=== PATIENT | female | born 1945 | race Caucasian/White ===

== ENCOUNTER 2017-03-21 07:11 | Inpatient (IN) | payer MEDICARE, OTHER ==
[~2017-03-21] VITALS: Ht 162.6 cm; Wt 68.9 kg
[2017-03-21] MEDS ORDERED: QUET50TA PO (07:43)
[2017-03-21] MEDS ORDERED: ASPI81TA31 PO (07:43)
[2017-03-21] MEDS ORDERED: MEMA10TA PO (07:43)
[2017-03-21] MEDS ORDERED: TRAZ-144 PO ×2 (07:43)
[2017-03-21] MEDS ORDERED: SERT50TA PO (07:43)
[2017-03-21 07:59] LABS: BASOPHILS % (AUTO) 0.6 % (0.0-2.0); EOSINOPHILS # (AUTO) 0.1 K/uL (0.0-0.7); EOSINOPHILS % (AUTO) 1.6 % (0.0-7.0); HEMATOCRIT 37.2 % (31.2-41.9); HEMOGLOBIN 12.6 g/dL (10.9-14.3); LYMPHOCYTES # (AUTO) 1.1 K/uL (20.0-40.0); LYMPHOCYTES % (AUTO) 26.4 % (20.5-51.5); MEAN CORPUSCULAR HEMOGLOBIN 31.3 uug (24.7-32.8); MEAN CORPUSCULAR HGB CONC 34 g/dL (32.3-35.6); MEAN CORPUSCULAR VOLUME 92.3 fL (75.5-95.3); MONOCYTES # (AUTO) 0.3 K/uL (2.0-10.0); MONOCYTES % (AUTO) 6.9 % (0.0-11.0); NEUTROPHILS # (AUTO) 2.7 K/uL (1.8-8.9); NEUTROPHILS % (AUTO) 64.5 % (38.5-71.5); PLATELET COUNT (AUTO) 245 K/uL (179-408); RED BLOOD CELL COUNT(AUTO) 4.03 MIL/uL (3.63-4.92); WHITE BLOOD COUNT (AUTO) 4.2 K/uL (3.8-11.8)
[2017-03-21 08:28] LABS: *BILIRUBIN,URIN NEGATIVE (NEGATIVE); *BLOOD, URINE NEGATIVE (NEGATIVE); *CLARITY,URINE CLEAR (CLEAR); *COLOR,URINE YELLOW (YELLOW); *KETONES,URINE NEGATIVE (NEGATIVE); *PROTEIN,URINE NEGATIVE (NEGATIVE); *UROBILINOGEN,URINE 0.2 E.U./dl (NORMAL); LEUKOCYTE ESTERASE ,URINE NEGATIVE (NEGATIVE); NITRITE, URINE NEGATIVE (NEGATIVE); PH,URINE 5.5 (5.0-8.0); UGLUCOSE TRACE (NEGATIVE)
[2017-03-21 08:31] LABS: BACTERIA,URINE FEW /HPF (NONE SEEN); RBC,URINE 0-3 /HPF (0-3); SQUAMOUS EPITHELIAL CELL,UR FEW /HPF (NONE SEEN); WBC,URINE 0-3 /HPF (0-3)
[2017-03-21 08:31] LABS: ETHANOL < 3 MG/DL (0-0)
[2017-03-21 08:34] LABS: *AMPHETAMINE, URINE NEGATIVE (NEGATIVE); *BARBITURATE, URINE NEGATIVE (NEGATIVE); *CANNABINOID, URINE NEGATIVE (NEGATIVE); *COCCAINE, URINE NEGATIVE (NEGATIVE); *OPIATE, URINE NEGATIVE (NEGATIVE); *PHENCYCLIDINE SCREEN,URINE NEGATIVE (NEGATIVE)
[2017-03-21 08:47] LABS: CARBON DIOXIDE 28 mmol/L (21-32); CHLORIDE 104 mmol/L (98-107); CREATININE 1.1 mg/dL (0.6-1.3); GLUCOSE 150 mg/dL (74-106); POTASSIUM 3.8 mmol/L (3.5-5.1); UREA NITROGEN, BLOOD 18 mg/dL (7-18)
[2017-03-21 08:52] LABS: ALANINE AMINOTRANSFERASE 24 U/L (14-59); ALKALINE PHOSPHATASE 72 U/L (50-136); ASPARTATE AMINOTRANSFERASE 24 U/L (15-37); BILIRUBIN,DIRECT 0.1 mg/dL (0.0-0.2); BILIRUBIN,TOTAL 0.3 mg/dL (0.2-1.0); TOTAL PROTEIN, SERUM 7.6 g/dL (6.4-8.2)
[2017-03-21 08:57] LABS: ACETAMINOPHEN < 2.0 ug/mL (10-30)
--- NOTE | 2017-03-21 09:01 | NUR ---
PT MEDICALLY CLEARED BY
--- NOTE | 2017-03-21 09:03 | NUR ---
SPOKE TO [facility] LES HARTMAN FOR PSYCH EVAL, ETA 1 HR PT RESTING COMFORABLY, FAMILY AT BEDSIDE
--- NOTE | 2017-03-21 10:26 | NUR ---
LES HERE FOR PSYCH EVALUATION.
--- NOTE | 2017-03-21 10:30 | NUR ---
LES HARTMAN FROM [facility] AT PT BEDSIDE
--- NOTE | 2017-03-21 11:00 | NUR ---
WAITING FOR BED AVAILABILITY PER COMMUTATOR PRESSER
--- NOTE | 2017-03-21 12:28 | NUR ---
ATTEMPTED TO GIVE REPORT TO MENTAL HEALTH UNIT, NURSE UNAVAIALABLE
--- NOTE | 2017-03-21 12:46 | NUR ---
ATTEMPTED TO CALL TO GIVE REPORT AGAIN, NURSE NOT AVAILABLE
[2017-03-21 13:10] VITALS: BP 122/66
[2017-03-21] MEDS ORDERED: MAGNESIUM HYDROXIDE 30 ML LIQUID UDC PO PRN (13:30)
[2017-03-21] MEDS ORDERED: ACETAMINOPHEN 325 MG TABLET PO PRN (13:30)
[2017-03-21] MEDS ORDERED: TEMAZEPAM 7.5 MG CAPSULE PO PRN (13:30)
[2017-03-21] MEDS ORDERED: MAG HYDROX/AL HYDROX/SIMETH 30 ML LIQUID UDC PO PRN (13:30)
[2017-03-21 16:50] VITALS: BP 117/63
[2017-03-21] MEDS ORDERED: TRAZODONE 50 MG TABLET PO SCH (18:00)
[2017-03-21] MEDS: TRAZODONE 50 MG TABLET PO SCH (18:32)
[2017-03-21] MEDS: QUETIAPINE FUMARATE 25 MG TABLET PO SCH (18:32)
[2017-03-21 20:00] VITALS: BP 128/65
--- NOTE | 2017-03-21 22:00 | NUR ---
received to care, wandering about unit, pleasant upon approach, but confused and delusional. stated that she was looking for her small children. reality orientation was provided, but she remains as confused as before. PRN restoril was given at 2101 for insomnia, and, by 2139, was in her bed, asleep. as of 2199, she remains asleep. no distress noted. will continue to monitor closely.
[2017-03-22 07:30] VITALS: BP 149/68
--- NOTE | 2017-03-22 11:07 | NUR ---
Firearms Report: whiting can worker completed and submitted [facility] [employer]arms Report on 03/22/17.
--- NOTE | 2017-03-22 11:59 | NUR ---
Initial discharge Instructions: Pt currently lives at home with her daughter and brother who care for her [[id number] [place] [address]; [phone]]. Per dtr, she thinks a SNF would be appropriate for the pt currently due to safety reasons. SW will speak with pt, family, and MD regarding appropriate discharge plans. SW will form a safe and proper discharge.
[2017-03-22] MEDS: SERTRALINE HCL 50 MG TABLET PO SCH (12:00)
[2017-03-22] MEDS: ASPIRIN 81 MG TAB.CHEW PO SCH (13:16)
[2017-03-22 16:58] VITALS: BP 115/68
[2017-03-22] MEDS: QUETIAPINE FUMARATE 25 MG TABLET PO SCH (17:02)
[2017-03-22] MEDS: TRAZODONE 50 MG TABLET PO SCH (17:05)
[2017-03-22] MEDS: METFORMIN HCL 500 MG TABLET PO SCH (17:08)
[2017-03-22] MEDS ORDERED: METFORMIN HCL 500 MG TABLET PO SCH (18:00)
[2017-03-22 20:00] VITALS: BP 119/55
[2017-03-22] MEDS: CLONAZEPAM 0.5 MG TABLET PO PRN (21:42)
--- NOTE | 2017-03-22 22:00 | NUR ---
received to care, ambulating about the unit, isolative, but pleasant upon approach. remains confused and disorganized. no interactions noted, with peers. PRN griffin was given at 2141, for anxiety. as of 2199, she remains awake, but calm, currently sitting on her bed. no distress noted. will continue to monitor closely.
[2017-03-23 08:00] VITALS: BP 126/64
[2017-03-23] MEDS: SERTRALINE HCL 50 MG TABLET PO SCH (08:49)
[2017-03-23] MEDS: METFORMIN HCL 500 MG TABLET PO SCH ×2 (08:49→18:12)
[2017-03-23] MEDS: ASPIRIN 81 MG TAB.CHEW PO SCH (08:49)
[2017-03-23] MEDS: ECONAZOLE CREAM 30 GM TUBE TOP SCH (11:53)
[2017-03-23 16:05] VITALS: BP 124/59
[2017-03-23] MEDS: QUETIAPINE FUMARATE 25 MG TABLET PO SCH (18:12)
[2017-03-23] MEDS: TRAZODONE 50 MG TABLET PO SCH (18:12)
[2017-03-23 21:31] VITALS: BP 119/64
--- NOTE | 2017-03-23 22:00 | NUR ---
received to care, wandering about unit, confused, but pleasant upon approach. interacts well with peers. compliant with staff direction. as of 2199, she appears to be asleep. no distress noted. will continue to monitor closely.
--- NOTE | 2017-03-24 06:00 | NUR ---
slept 7.5 hours. continues to sleep. no distress noted.
[2017-03-24 07:30] VITALS: BP 114/63
[2017-03-24] MEDS: SERTRALINE HCL 50 MG TABLET PO SCH (08:14)
[2017-03-24] MEDS: METFORMIN HCL 500 MG TABLET PO SCH ×2 (08:14→17:26)
[2017-03-24] MEDS: ASPIRIN 81 MG TAB.CHEW PO SCH (08:14)
[2017-03-24] MEDS: ECONAZOLE CREAM 30 GM TUBE TOP SCH (08:24)
[2017-03-24] MEDS ORDERED: DEXTROSE 50% 50 ML DISP.SYRIN IV PRN (12:30)
[2017-03-24] MEDS: BLOOD SUGAR DIAGNOSTIC 1 EACH STRIP VI SCH ×3 (12:40→20:37)
[2017-03-24] MEDS: INSULIN REGULAR, HUMAN 300 UNIT/3 ML VIAL SQ PRN ×3 (13:11→20:41)
[2017-03-24 15:21] VITALS: BP 113/50
[2017-03-24] MEDS: QUETIAPINE FUMARATE 25 MG TABLET PO SCH (17:26)
[2017-03-24] MEDS: TRAZODONE 50 MG TABLET PO SCH (17:26)
[2017-03-24 20:00] VITALS: BP 129/69
[2017-03-25] MEDS: BLOOD SUGAR DIAGNOSTIC 1 EACH STRIP VI SCH ×4 (06:42→20:49)
--- NOTE | 2017-03-25 06:46 | NUR ---
GPS: REMAIN CALM AND COOPERATIVE WITH MEDICATION AND CARE. SLEPT 07:30 HRS THROUGH THE NIGHT. ASSISTED WITH SHOWERED THIS AM.BLOOD SUGAR 129 MG/DL. PATIENT PLEASANTLY CONFUSED. CONTINUE PLAN OF CARE.
[2017-03-25 07:30] VITALS: BP 121/61
[2017-03-25] MEDS: METFORMIN HCL 500 MG TABLET PO SCH ×2 (08:19→17:53)
[2017-03-25] MEDS: SERTRALINE HCL 50 MG TABLET PO SCH (08:19)
[2017-03-25] MEDS: ASPIRIN 81 MG TAB.CHEW PO SCH (08:19)
[2017-03-25] MEDS: ECONAZOLE CREAM 30 GM TUBE TOP SCH (08:19)
[2017-03-25 15:00] VITALS: BP 109/60
[2017-03-25] MEDS: INSULIN REGULAR, HUMAN 300 UNIT/3 ML VIAL SQ PRN ×2 (16:16→20:51)
[2017-03-25] MEDS: TRAZODONE 50 MG TABLET PO SCH (17:53)
[2017-03-25] MEDS: QUETIAPINE FUMARATE 25 MG TABLET PO SCH (17:53)
[2017-03-25 19:59] VITALS: BP 132/60
[2017-03-26] MEDS: BLOOD SUGAR DIAGNOSTIC 1 EACH STRIP VI SCH ×4 (06:32→20:46)
[2017-03-26 07:30] VITALS: BP 116/61
[2017-03-26] MEDS: ASPIRIN 81 MG TAB.CHEW PO SCH (08:07)
[2017-03-26] MEDS: METFORMIN HCL 500 MG TABLET PO SCH ×2 (08:07→17:29)
[2017-03-26] MEDS: SERTRALINE HCL 50 MG TABLET PO SCH (08:07)
[2017-03-26] MEDS: ECONAZOLE CREAM 30 GM TUBE TOP SCH (08:07)
[2017-03-26] MEDS: INSULIN REGULAR, HUMAN 300 UNIT/3 ML VIAL SQ PRN (12:02)
[2017-03-26 15:37] VITALS: BP 133/84
[2017-03-26] MEDS: TRAZODONE 50 MG TABLET PO SCH (17:28)
[2017-03-26] MEDS: QUETIAPINE FUMARATE 25 MG TABLET PO SCH (17:29)
[2017-03-26 19:43] VITALS: BP 125/54
[2017-03-26] MEDS: CLONAZEPAM 0.5 MG TABLET PO PRN (20:19)
[2017-03-27] MEDS: BLOOD SUGAR DIAGNOSTIC 1 EACH STRIP VI SCH ×4 (06:34→22:02)
[2017-03-27 07:30] VITALS: BP 120/61
[2017-03-27] MEDS: ASPIRIN 81 MG TAB.CHEW PO SCH (08:02)
[2017-03-27] MEDS: SERTRALINE HCL 50 MG TABLET PO SCH (08:02)
[2017-03-27] MEDS: METFORMIN HCL 500 MG TABLET PO SCH ×2 (08:02→17:15)
[2017-03-27] MEDS: ECONAZOLE CREAM 30 GM TUBE TOP SCH (08:02)
[2017-03-27] MEDS: INSULIN REGULAR, HUMAN 300 UNIT/3 ML VIAL SQ PRN ×2 (11:42→22:07)
[2017-03-27 15:35] VITALS: BP 112/50
[2017-03-27] MEDS: QUETIAPINE FUMARATE 25 MG TABLET PO SCH (17:14)
[2017-03-27] MEDS: TRAZODONE 50 MG TABLET PO SCH (17:15)
--- NOTE | 2017-03-27 17:35 | NUR ---
Gps/Bartacker- Noted talking to herself, reponding to internal stimuli. Ambulatory goes from room to room, needed constant redirections, follows commands. Needed prompting to feed self, poor initiation. Safety continue to emphasized.
[2017-03-27 20:18] VITALS: BP 130/62
[2017-03-28] MEDS: BLOOD SUGAR DIAGNOSTIC 1 EACH STRIP VI SCH ×4 (06:46→20:56)
[2017-03-28 07:30] VITALS: BP 114/60
[2017-03-28] MEDS: METFORMIN HCL 500 MG TABLET PO SCH ×2 (09:09→17:01)
[2017-03-28] MEDS: SERTRALINE HCL 50 MG TABLET PO SCH (09:09)
[2017-03-28] MEDS: ASPIRIN 81 MG TAB.CHEW PO SCH (09:09)
[2017-03-28] MEDS: ECONAZOLE CREAM 30 GM TUBE TOP SCH (09:10)
[2017-03-28] MEDS: INSULIN REGULAR, HUMAN 300 UNIT/3 ML VIAL SQ PRN ×2 (12:19→20:58)
[2017-03-28] MEDS: CLONAZEPAM 0.5 MG TABLET PO PRN (12:28)
--- NOTE | 2017-03-28 12:31 | NUR ---
Patient became aggressive, arguing with her peers, wanders around, very confused and disoriented, restless, tearful, with increased agitation, pO PRN klonopin 0.5mg PO was given at 1228. Will continue to monitor for safety and behavioral changes.
[2017-03-28 16:22] VITALS: BP 136/82
[2017-03-28] MEDS: TRAZODONE 50 MG TABLET PO SCH (17:01)
[2017-03-28] MEDS: QUETIAPINE FUMARATE 25 MG TABLET PO SCH (17:02)
[2017-03-28 20:00] VITALS: BP 132/68
[2017-03-29 07:30] VITALS: BP 136/72
[2017-03-29] MEDS: BLOOD SUGAR DIAGNOSTIC 1 EACH STRIP VI SCH ×2 (07:31→11:36)
--- NOTE | 2017-03-29 08:33 | NUR ---
DC Note: Patient will be discharged to [facility] [[address] [place] [address]; ] via ambulance at 10am. Spoke with Skylar at the facility who states they are ready to accept the patient today. Spoke with patient's daughter, Aida ([phone]) who is aware and agreeable with discharge plans. Patient is aware and agreeable with discharge plans. Patient will follow-up at the facility with Dr. Greenfield (Genetic Counselor) and Dr. Casiano (Psychiatrist).
[2017-03-29] MEDS: SERTRALINE HCL 50 MG TABLET PO SCH (09:01)
[2017-03-29] MEDS: ASPIRIN 81 MG TAB.CHEW PO SCH (09:01)
[2017-03-29] MEDS: METFORMIN HCL 500 MG TABLET PO SCH (09:01)
[2017-03-29] MEDS: ECONAZOLE CREAM 30 GM TUBE TOP SCH (09:02)
--- NOTE | 2017-03-29 14:34 | NUR ---
1100 Patient will be discharged today to [facility]. Report called in and spoke spoke with URIEL Dick and informed regarding patient medical and mental status, medications to continue- RN verbalized understanding. 1400 Patient picked up by ambulace and transfer to SNF , patient denies SI/HI.
== END 2017-03-29 14:00 | DRG 885 ==
LOC: ER 07:11 → GPS 12:24
PROVIDERS: ADMIT Psychiatry & Neurology Psychiatry; ATTEND Internal Medicine
DX: F33.3 Major depressive disorder, recurrent, severe with psychotic symptoms (principal); F03.90 Unspecified dementia, unspecified severity, without behavioral disturbance, psychotic disturbance, mood disturbance, and anxiety; E11.9 Type 2 diabetes mellitus without complications; F23 Brief psychotic disorder; F41.9 Anxiety disorder, unspecified; Z79.899 Other long term (current) drug therapy; G47.00 Insomnia, unspecified; Z79.84 Long term (current) use of oral hypoglycemic drugs
CPT/HCPCS: 36415; 71010; 80307; 85025; 93005; 97116; 97530; A4663; G0480; G0480-TC; J1815